=== PATIENT | female | born 1950 | race Two or more races ===

== ENCOUNTER 2025-08-21 13:32 | Emergency (ER) | payer OTHER ==
[~2025-08-21] VITALS: Ht 154.9 cm; Wt 63.5 kg
[2025-08-21 13:39] VITALS: TEMP 98.4
[2025-08-21 14:17] LABS: PLATELET COUNT (AUTO) 251 K/uL (150-450); RED BLOOD CELL COUNT(AUTO) 4.48 MIL/uL (4.0-5.2); RED CELL DISTRIBUTION WIDTH 14.7 % (11.5-15.0); WHITE BLOOD COUNT (AUTO) 6.8 K/uL (4.3-11.0)
[2025-08-21 14:25] LABS: CALCIUM, SERUM 9.5 mg/dL (8.5-10.1); CREATININE 1.0 mg/dL (0.6-1.3); SODIUM SERUM 138 mmol/L (136-145); UREA NITROGEN, BLOOD 15 mg/dL (7-18)
[2025-08-21 17:37] VITALS: BP 126/70; O2SAT 99
== END 2025-08-21 17:40 | disposition home or self-care (01) ==
LOC: ER 13:46
DX: R07.9 Chest pain, unspecified (principal); F43.20 Adjustment disorder, unspecified; E11.9 Type 2 diabetes mellitus without complications; I10 Essential (primary) hypertension; Z79.84 Long term (current) use of oral hypoglycemic drugs; Z88.6 Allergy status to analgesic agent; Z95.810 Presence of automatic (implantable) cardiac defibrillator
CPT/HCPCS: 36415; 71045-TC; 80048-TC; 84484-TC; 85025-TC